=== PATIENT | female | born 1990 | race Caucasian/White ===

== ENCOUNTER 2025-08-08 07:57 | Outpatient (CLI) | payer BC, OTHER ==
[2025-08-08 08:34] LABS: #Basophils 0.04 10x3/uL (0.0-0.2); #Eosinophils 0.03 10x3/uL (0.0-0.5); #Monocytes 0.42 10x3/uL (0.0-1.1); #Neutrophils 2.27 10x3/uL (1.5-8.4); %Basophils 1.0 % (0.0-2.0); %Eosinophils 0.7 % (0.0-6.0); %Lymphocytes 31.3 % (18.0-47.0); %Monocytes 10.4 % (0.0-10.0); %Neutrophils 56.4 % (40.0-75.0); Hematocrit 38.8 % (34.9-44.5); Hemoglobin 12.8 g/dL (12.0-15.5); Mean Corpuscular Hemoglobin 29.3 pg (27.0-33.0); Mean Corpuscular Volume 88.8 fL (81.6-98.3); Platelet Count 255 10x3/uL (150-450); Red Blood Cell (RBC) Count 4.37 10x6/uL (3.90-5.03); White Blood Cell (WBC) Count 4.03 10x3/uL (3.5-10.5)
[2025-08-08 09:07] LABS: Anion Gap 11 mmol/L (10-20); BUN (Urea Nitrogen) 13 mg/dL (7.0-18.7); Calc. Creatinine Clearance 0 mL/min (70-130); Calcium 9.4 mg/dL (7.8-10.44); Carbon Dioxide 26 mmol/L (22-29); Chloride 104 mmol/L (98-107); Glucose 89 mg/dL (70-105); Potassium 4.4 mmol/L (3.5-5.1); Sodium 137 mmol/L (136-145)
[2025-08-08 09:12] LABS: BHCG - Serum Negative (NEGATIVE)
[2025-08-08 09:13] LABS: Pregs Control Background? CLEAR/WHITE (CLR/WHITE); Pregs Control Bar Appear? YES (CONTROL BAR)
== END 2025-08-08 07:58 | disposition home or self-care (01) ==
LOC: CSHLAB 07:57
PROVIDERS: ATTEND Surgery
DX: Z01.812 Encounter for preprocedural laboratory examination (principal); K64.4 Residual hemorrhoidal skin tags
CPT/HCPCS: 80048; 84703; 85025

== ENCOUNTER 2025-08-15 09:53 | Day surgery (SDC) | payer BC ==
[2025-08-08 08:22] VITALS: BMI 24.1
[2025-08-15] MEDS ORDERED: PROPOFOL 20 ML ONE (10:00)
[2025-08-15] MEDS ORDERED: Lidocaine 1% PF 5 ML VIAL ONE (10:01)
[2025-08-15] MEDS ORDERED: Bupivacaine/Epinephrine 0.25% 30 ML VIAL ONE (10:05)
[2025-08-15] MEDS ORDERED: CEFAZOLIN 2 GM VIAL ONE (10:05)
[2025-08-15] MEDS ORDERED: Lidocaine 2% 6 ML (Jelly) SYR ONE (10:05)
[2025-08-15] MEDS ORDERED: Sevoflurane 250 ML INH ANEST BOTTLE ONE (10:06)
[2025-08-15] MEDS ORDERED: Ondansetron PF 4 MG/2 ML Vial ONE (11:15)
[2025-08-15] MEDS ORDERED: HYDROcodone/Acetaminophen 5/325 mg Tablet ONE (11:54)
== END 2025-08-15 13:30 | disposition home or self-care (01) ==
LOC: CSHSDC 09:53
PROVIDERS: ATTEND Surgery
PROC: 06BY0ZC Excision of Hemorrhoidal Plexus, Open Approach (ICD-10-PCS; principal; 2025-08-15)
DX: K64.4 Residual hemorrhoidal skin tags (principal); K64.8 Other hemorrhoids
CPT/HCPCS: 88304; J0694; J1100; J2704